=== PATIENT | male | born 1965 | race Caucasian/White ===

== ENCOUNTER 2020-06-13 11:17 | Inpatient (IN) | payer MEDICAID, OTHER ==
[~2020-06-13] VITALS: Ht 177.8 cm; Wt 119.8 kg
[2020-06-13] MEDS ORDERED: FLUT16H NASAL (11:36)
[2020-06-13] MEDS ORDERED: ESCI-8 PO (11:36)
[2020-06-13] MEDS ORDERED: DICL500 PO (11:36)
[2020-06-13] MEDS ORDERED: OMEP20 PO (11:36)
[2020-06-13] MEDS ORDERED: ALBU8HFA IH (11:36)
[2020-06-13] MEDS ORDERED: MONT-35 PO (11:36)
[2020-06-13] MEDS ORDERED: METF-960 PO (11:36)
[2020-06-13] MEDS ORDERED: INSU100I26 SQ (11:36)
[2020-06-13] MEDS ORDERED: GABA-1181 PO (11:36)
[2020-06-13] MEDS ORDERED: HYDR25TA84 PO (11:36)
[2020-06-13] MEDS ORDERED: LISI-661 PO (11:36)
[2020-06-13 13:12] LABS: BASOPHILS % (AUTO) 0.5 % (0.0-2.0); EOSINOPHILS % (AUTO) 3.8 % (1.0-6.0); HEMATOCRIT 39.2 % (41-53); HEMOGLOBIN 13.1 g/dL (13.5-17.5); LYMPHOCYTES # (AUTO) 0.9 K/uL (1.0-4.8); LYMPHOCYTES % (AUTO) 10.3 % (22.0-44.0); MEAN CORPUSCULAR HEMOGLOBIN 29.3 pg (26.0-34.0); MEAN CORPUSCULAR HGB CONC 33.4 G/dL (31.0-37.0); MEAN CORPUSCULAR VOLUME 88 fL (80-100); MONOCYTES # (AUTO) 0.3 K/uL (0.1-1.0); NEUTROPHILS # (AUTO) 6.8 K/uL (1.8-7.7); NEUTROPHILS % (AUTO) 81.4 % (40.0-70.0); PLATELET COUNT (AUTO) 247 K/uL (150-450); RED BLOOD CELL COUNT(AUTO) 4.46 MIL/uL (4.50-5.90); RED CELL DISTRIBUTION WIDTH 15.1 % (11.5-14.5)
[2020-06-13 13:22] LABS: ANION GAP 7 mmol/L (8-16); CALCIUM, TOTAL 9.1 mg/dL (8.8-10.5); CARBON DIOXIDE 26 mmol/L (22-29); CHLORIDE 103 mmol/L (98-107); CREATININE 1.39 mg/dL (0.60-1.30); GLOMERULAR FILTR. RATE CALC 53 mL/min (>60); GLUCOSE,RANDOM 356 mg/dL (70-110); SODIUM SERUM 136 mmol/L (136-145); UREA NITROGEN, BLOOD 20 mg/dL (7-18)
[2020-06-13 13:31] LABS: ALANINE AMINOTRANSFERASE 41 U/L (12-78); ALBUMIN 3.3 g/dL (3.4-5.0); ALKALINE PHOSPHATASE 95 U/L (46-116); ASPARTATE AMINOTRANSFERASE 27 U/L (15-37); BILIRUBIN,TOTAL 0.5 mg/dL (0.1-1.0); TOTAL PROTEIN, SERUM 6.6 g/dL (6.4-8.2)
[2020-06-13 14:48] LABS: GLUCOSE,POINT OF CARE 270 MG/DL (70-110)
[2020-06-13 16:04] LABS: AMPHET/METH SCREEN,URINE POSITIVE (NEGATIVE); BARBITURATE SCREEN, URINE NEGATIVE (NEGATIVE); BENZODIAZEPINES SCREEN,URINE NEGATIVE (NEGATIVE); CANNABINOID SCREEN,URINE NEGATIVE (NEGATIVE); COCAINE SCREEN,URINE NEGATIVE (NEGATIVE); METHADONE SCREEN, URINE NEGATIVE (NEGATIVE)
[2020-06-13 16:05] LABS: OPIATE SCREEN,URINE NEGATIVE (NEGATIVE)
[2020-06-13 16:09] LABS: PHENCYCLIDINE SCREEN,URINE NEGATIVE (NEGATIVE)
[2020-06-13] MEDS ORDERED: OLANZapine 5 MG TABLET PO ONE (17:45)
[2020-06-13] MEDS ORDERED: HALOPERIDOL 5 MG TABLET PO PRN (20:30)
[2020-06-13] MEDS ORDERED: LORazepam 2 MG TABLET PO PRN (20:30)
[2020-06-13] MEDS ORDERED: ZOLPIDEM TARTRATE 10 MG TABLET PO PRN (20:30)
[2020-06-13 21:40] LABS: COVID AG,FIA SOURCE NASOPHARYNGEAL
[2020-06-13] MEDS ORDERED: ACETAMINOPHEN 325 MG TABLET PO PRN (22:15)
[2020-06-13] MEDS ORDERED: IBUPROFEN 400 MG TABLET PO PRN (22:15)
[2020-06-13] MEDS ORDERED: MAGNESIUM HYDROXIDE SUSPENSION 30 ML UDCUP PO PRN (22:15)
[2020-06-13] MEDS ORDERED: INSULIN LISPRO 100 UNITS/ML SQ PRN (22:15)
[2020-06-13] MEDS ORDERED: MAG HYDROX/AL HYDROX/SIMETH ES 30 ML SUSPENSION UDCUP PO PRN (22:15)
[2020-06-13] MEDS ORDERED: CloNIDine HCL 0.1 MG TABLET PO PRN (22:15)
[2020-06-13] MEDS ORDERED: ONDANSETRON HCL 4 MG TABLET PO PRN (22:15)
[2020-06-13] MEDS ORDERED: DOCUSATE SODIUM 100 MG CAPSULE PO PRN (22:15)
[2020-06-13] MEDS ORDERED: PETROLATUM,WHITE 28 GM JELLY TP PRN (22:15)
[2020-06-13] MEDS ORDERED: LOPERAMIDE HCL 2 MG CAPSULE PO PRN (22:15)
[2020-06-13] MEDS ORDERED: NICOTINE 14 MG/24 HOUR PATCH TD PRN (22:15)
[2020-06-13] MEDS ORDERED: ALBUTEROL SULFATE HFA 90 MCG/PUFF 8 GM INHALER IH PRN ×2 (22:15)
[2020-06-13] MEDS ORDERED: GLUCAGON,HUMAN RECOMBINANT 1 MG VIAL IM PRN (22:15)
[2020-06-13] MEDS ORDERED: GuaiFENesin/D-METHORPHAN [SUGAR-FREE] 200-20MG/10 ML SYRUP UDCUP PO PRN (22:15)
[2020-06-13] MEDS ORDERED: DEXTROSE 50%-WATER 25 GM/50 ML SYG IVP PRN (22:30)
[2020-06-14 00:23] LABS: GLUCOSE,POINT OF CARE 280 MG/DL (70-110)
[2020-06-14 00:35] VITALS: BP 132/83
[2020-06-14 06:22] LABS: GLUCOMETER DEV NAME(LOC) 3E.I 2; GLUCOSE,POINT OF CARE 270 MG/DL (70-110)
[2020-06-14] MEDS: MetFORMIN HCL 500 MG TABLET PO SCH ×2 (07:19→17:30)
[2020-06-14] MEDS: INSULIN LISPRO 100 UNITS/ML SQ PRN ×4 (07:21→21:03)
[2020-06-14 07:22] LABS: CHOL/HDL RATIO 2.9 (4.2-7.3)
[2020-06-14 08:00] VITALS: BP 155/81
[2020-06-14] MEDS: LISINOPRIL 10 MG TABLET PO SCH (09:35)
[2020-06-14] MEDS: FLUTICASONE PROPIONATE 50 MCG/SPRAY 16 GM NASAL SPRAY NASAL SCH ×2 (09:35→16:43)
[2020-06-14] MEDS: OMEPRAZOLE 20 MG CAPSULE PO SCH (09:35)
[2020-06-14] MEDS: MONTELUKAST SODIUM 10 MG TABLET PO SCH (09:36)
[2020-06-14] MEDS: HydrALAZINE HCL 25 MG TABLET PO SCH ×3 (09:36→17:00)
[2020-06-14 12:53] LABS: GLUCOMETER DEV NAME(LOC) 3E.I 2; GLUCOSE,POINT OF CARE 270 MG/DL (70-110)
[2020-06-14] MEDS: RisperiDONE 1 MG TABLET PO SCH (13:10)
[2020-06-14] MEDS: ESCITALOPRAM OXALATE 10 MG TABLET PO SCH (13:10)
[2020-06-14 16:46] VITALS: BP 91/63
[2020-06-14 17:17] LABS: GLUCOMETER DEV NAME(LOC) 3E.I 2; GLUCOSE,POINT OF CARE 304 MG/DL (70-110)
[2020-06-14 20:24] LABS: GLUCOMETER DEV NAME(LOC) 3E.I 2; GLUCOSE,POINT OF CARE 289 MG/DL (70-110)
[2020-06-15 05:52] LABS: GLUCOMETER DEV NAME(LOC) 3E.I 2; GLUCOSE,POINT OF CARE 328 MG/DL (70-110)
[2020-06-15 06:13] VITALS: BP 125/74
[2020-06-15] MEDS: INSULIN LISPRO 100 UNITS/ML SQ PRN ×4 (06:54→21:42)
[2020-06-15] MEDS: MetFORMIN HCL 500 MG TABLET PO SCH ×2 (06:57→17:04)
[2020-06-15] MEDS: LISINOPRIL 10 MG TABLET PO SCH (09:09)
[2020-06-15] MEDS: MONTELUKAST SODIUM 10 MG TABLET PO SCH (09:09)
[2020-06-15] MEDS: ESCITALOPRAM OXALATE 10 MG TABLET PO SCH (09:09)
[2020-06-15] MEDS: RisperiDONE 1 MG TABLET PO SCH (09:09)
[2020-06-15] MEDS: OMEPRAZOLE 20 MG CAPSULE PO SCH (09:09)
[2020-06-15] MEDS: FLUTICASONE PROPIONATE 50 MCG/SPRAY 16 GM NASAL SPRAY NASAL SCH ×2 (09:09→17:04)
[2020-06-15] MEDS: HydrALAZINE HCL 25 MG TABLET PO SCH ×3 (09:09→17:04)
[2020-06-15 11:24] VITALS: BP 113/71
[2020-06-15 11:43] LABS: GLUCOMETER DEV NAME(LOC) 3E.I 2; GLUCOSE,POINT OF CARE 259 MG/DL (70-110)
[2020-06-15] MEDS ORDERED: MECLIZINE HCL 12.5 MG TABLET PO PRN (14:45)
[2020-06-15 16:57] VITALS: BP 105/58
[2020-06-15 17:31] LABS: GLUCOMETER DEV NAME(LOC) 3E.I 2; GLUCOSE,POINT OF CARE 245 MG/DL (70-110)
[2020-06-15 21:50] LABS: GLUCOMETER DEV NAME(LOC) 3E.I 2; GLUCOSE,POINT OF CARE 236 MG/DL (70-110)
[2020-06-16 05:34] LABS: GLUCOMETER DEV NAME(LOC) 3E.I 2; GLUCOSE,POINT OF CARE 247 MG/DL (70-110)
[2020-06-16] MEDS: MetFORMIN HCL 500 MG TABLET PO SCH ×2 (06:48→17:27)
[2020-06-16] MEDS: INSULIN LISPRO 100 UNITS/ML SQ PRN ×4 (07:07→20:59)
[2020-06-16] MEDS: ESCITALOPRAM OXALATE 10 MG TABLET PO SCH (08:06)
[2020-06-16] MEDS: LISINOPRIL 10 MG TABLET PO SCH (08:06)
[2020-06-16] MEDS: MONTELUKAST SODIUM 10 MG TABLET PO SCH (08:06)
[2020-06-16] MEDS: RisperiDONE 1 MG TABLET PO SCH (08:06)
[2020-06-16] MEDS: HydrALAZINE HCL 25 MG TABLET PO SCH ×3 (08:06→17:00)
[2020-06-16] MEDS: OMEPRAZOLE 20 MG CAPSULE PO SCH (08:06)
[2020-06-16] MEDS: FLUTICASONE PROPIONATE 50 MCG/SPRAY 16 GM NASAL SPRAY NASAL SCH ×2 (08:06→17:23)
[2020-06-16 11:29] LABS: GLUCOMETER DEV NAME(LOC) 3E.I 2; GLUCOSE,POINT OF CARE 237 MG/DL (70-110)
[2020-06-16 12:31] VITALS: BP 108/74
[2020-06-16 17:08] VITALS: BP 97/64
[2020-06-16 17:37] LABS: GLUCOMETER DEV NAME(LOC) 3E.I 2; GLUCOSE,POINT OF CARE 210 MG/DL (70-110)
[2020-06-16 21:28] LABS: GLUCOMETER DEV NAME(LOC) 3E.I 2; GLUCOSE,POINT OF CARE 232 MG/DL (70-110)
[2020-06-17 05:41] LABS: GLUCOMETER DEV NAME(LOC) 3E.I 2; GLUCOSE,POINT OF CARE 257 MG/DL (70-110)
[2020-06-17] MEDS: MetFORMIN HCL 500 MG TABLET PO SCH ×2 (06:57→17:31)
[2020-06-17] MEDS: INSULIN LISPRO 100 UNITS/ML SQ PRN ×4 (06:58→21:01)
[2020-06-17 10:18] VITALS: BP 112/62
[2020-06-17] MEDS: OMEPRAZOLE 20 MG CAPSULE PO SCH (10:56)
[2020-06-17] MEDS: LISINOPRIL 10 MG TABLET PO SCH (10:56)
[2020-06-17] MEDS: ESCITALOPRAM OXALATE 10 MG TABLET PO SCH (10:56)
[2020-06-17] MEDS: MONTELUKAST SODIUM 10 MG TABLET PO SCH (10:56)
[2020-06-17] MEDS: HydrALAZINE HCL 25 MG TABLET PO SCH ×3 (10:56→17:00)
[2020-06-17] MEDS: RisperiDONE 1 MG TABLET PO SCH (10:56)
[2020-06-17] MEDS: FLUTICASONE PROPIONATE 50 MCG/SPRAY 16 GM NASAL SPRAY NASAL SCH ×2 (10:56→16:58)
[2020-06-17 12:00] LABS: GLUCOMETER DEV NAME(LOC) 3E.I 2; GLUCOSE,POINT OF CARE 286 MG/DL (70-110)
[2020-06-17 16:41] VITALS: BP 101/54
[2020-06-17 17:14] LABS: GLUCOMETER DEV NAME(LOC) 3E.I 2; GLUCOSE,POINT OF CARE 226 MG/DL (70-110)
[2020-06-17 20:54] LABS: GLUCOMETER DEV NAME(LOC) 3E.I 2; GLUCOSE,POINT OF CARE 218 MG/DL (70-110)
[2020-06-18 05:26] LABS: GLUCOMETER DEV NAME(LOC) 3E.I 2; GLUCOSE,POINT OF CARE 216 MG/DL (70-110)
[2020-06-18] MEDS: MetFORMIN HCL 500 MG TABLET PO SCH ×2 (07:01→16:56)
[2020-06-18] MEDS: GlipiZIDE 5 MG TABLET PO SCH (07:03)
[2020-06-18] MEDS: INSULIN LISPRO 100 UNITS/ML SQ PRN ×4 (07:09→21:11)
[2020-06-18 09:27] VITALS: BP 141/86
[2020-06-18] MEDS: FLUTICASONE PROPIONATE 50 MCG/SPRAY 16 GM NASAL SPRAY NASAL SCH ×2 (09:54→16:56)
[2020-06-18] MEDS: MONTELUKAST SODIUM 10 MG TABLET PO SCH (09:55)
[2020-06-18] MEDS: HydrALAZINE HCL 25 MG TABLET PO SCH ×3 (09:55→16:56)
[2020-06-18] MEDS: ESCITALOPRAM OXALATE 10 MG TABLET PO SCH (10:23)
[2020-06-18] MEDS: RisperiDONE 1 MG TABLET PO SCH (10:23)
[2020-06-18] MEDS: LISINOPRIL 10 MG TABLET PO SCH (10:23)
[2020-06-18] MEDS: OMEPRAZOLE 20 MG CAPSULE PO SCH (10:23)
[2020-06-18 12:25] LABS: GLUCOMETER DEV NAME(LOC) 3E.I 2; GLUCOSE,POINT OF CARE 235 MG/DL (70-110)
[2020-06-18 16:00] VITALS: BP 121/74
[2020-06-18 20:43] LABS: GLUCOMETER DEV NAME(LOC) 3E.I 2; GLUCOSE,POINT OF CARE 133 MG/DL (70-110)
[2020-06-19 05:22] LABS: GLUCOMETER DEV NAME(LOC) 3E.I 2; GLUCOSE,POINT OF CARE 164 MG/DL (70-110)
[2020-06-19 05:49] LABS: GLUCOMETER DEV NAME(LOC) 3E.I 2; GLUCOSE,POINT OF CARE 147 MG/DL (70-110)
[2020-06-19] MEDS: MetFORMIN HCL 500 MG TABLET PO SCH ×2 (06:50→17:30)
[2020-06-19] MEDS: GlipiZIDE 5 MG TABLET PO SCH (06:50)
[2020-06-19] MEDS: INSULIN LISPRO 100 UNITS/ML SQ PRN ×3 (06:57→17:08)
[2020-06-19 09:03] VITALS: BP 122/75
[2020-06-19] MEDS: LISINOPRIL 10 MG TABLET PO SCH (09:09)
[2020-06-19] MEDS: RisperiDONE 1 MG TABLET PO SCH (09:09)
[2020-06-19] MEDS: ESCITALOPRAM OXALATE 10 MG TABLET PO SCH (09:09)
[2020-06-19] MEDS: OMEPRAZOLE 20 MG CAPSULE PO SCH (09:09)
[2020-06-19] MEDS: HydrALAZINE HCL 25 MG TABLET PO SCH ×3 (09:10→16:26)
[2020-06-19] MEDS: FLUTICASONE PROPIONATE 50 MCG/SPRAY 16 GM NASAL SPRAY NASAL SCH ×2 (09:10→17:00)
[2020-06-19] MEDS: MONTELUKAST SODIUM 10 MG TABLET PO SCH (09:11)
[2020-06-19 11:37] LABS: GLUCOMETER DEV NAME(LOC) 3E.I 2; GLUCOSE,POINT OF CARE 215 MG/DL (70-110)
[2020-06-19] MEDS ORDERED: RISP1TAB27 PO (11:41)
[2020-06-19] MEDS ORDERED: GLIP5 PO (11:43)
[2020-06-19 16:00] VITALS: BP 122/74
[2020-06-19 16:39] LABS: GLUCOMETER DEV NAME(LOC) 3E.I 2; GLUCOSE,POINT OF CARE 190 MG/DL (70-110)
== END 2020-06-19 18:45 | disposition home or self-care (01) | DRG 750 ==
LOC: EMS 11:19 → 3EI 20:17 → UNDOADMIN 20:17 → 3EI 21:21
PROVIDERS: ADMIT Psychiatry & Neurology Child & Adolescent Psychiatry; ATTEND Psychiatry & Neurology Child & Adolescent Psychiatry
DX: F25.1 Schizoaffective disorder, depressive type (principal); E11.22 Type 2 diabetes mellitus with diabetic chronic kidney disease; E11.40 Type 2 diabetes mellitus with diabetic neuropathy, unspecified; I12.9 Hypertensive chronic kidney disease with stage 1 through stage 4 chronic kidney disease, or unspecified chronic kidney disease; J45.909 Unspecified asthma, uncomplicated; N18.30 Chronic kidney disease, stage 3 unspecified; R45.850 Homicidal ideations; R45.851 Suicidal ideations; D64.9 Anemia, unspecified; Z59.0 Homelessness
CPT/HCPCS: 87426; G0480

== ENCOUNTER 2020-11-17 02:08 | Inpatient (IN) | payer MEDICAID, OTHER ==
[~2020-11-17] VITALS: Ht 177.8 cm; Wt 122.0 kg
[~2020-11-17 02:08] MED LIST: ALBU8HFA IH; ESCI-8 PO; FLUT16H NASAL; GLIP5 PO; HYDR25TA84 PO; LISI-893 PO; METF-960 PO; MONT-35 PO; OMEP20 PO; RISP1TAB48 PO
[2020-11-17] MEDS ORDERED: LORazepam 2 MG TABLET PO ONE (02:45)
[2020-11-17] MEDS ORDERED: ESCITALOPRAM OXALATE 10 MG TABLET PO ONE (02:45)
[2020-11-17] MEDS ORDERED: RisperiDONE 1 MG TABLET PO ONE (02:45)
[2020-11-17 03:31] LABS: COVID AG,FIA SOURCE NASOPHARYNGEAL
[2020-11-17] MEDS ORDERED: LORazepam 2 MG TABLET PO PRN (03:45)
[2020-11-17] MEDS ORDERED: HALOPERIDOL 5 MG TABLET PO PRN (03:45)
[2020-11-17] MEDS ORDERED: ZOLPIDEM TARTRATE 10 MG TABLET PO PRN (03:45)
[2020-11-17] MEDS ORDERED: GABA-1181 PO (04:07)
[2020-11-17] MEDS ORDERED: ATOR20TA65 PO (04:18)
[2020-11-17] MEDS ORDERED: ASCO500 PO (04:18)
[2020-11-17] MEDS ORDERED: MULT400T7 PO (04:18)
[2020-11-17 21:09] LABS: GLUCOMETER DEV NAME(LOC) BV2S.; GLUCOSE,POINT OF CARE 363 MG/DL (70-110)
[2020-11-17 21:12] VITALS: BP 161/91
[2020-11-17] MEDS ORDERED: GLUCAGON,HUMAN RECOMBINANT 1 MG VIAL IM PRN (21:45)
[2020-11-17] MEDS ORDERED: CloNIDine HCL 0.1 MG TABLET PO PRN (21:45)
[2020-11-17] MEDS: INSULIN LISPRO 100 UNITS/ML SQ PRN (22:12)
[2020-11-18] VITALS (10 sets, daily range): BP systolic 91–142; BP diastolic 61–86
[2020-11-18] MEDS: INSULIN LISPRO 100 UNITS/ML SQ PRN ×3 (07:54→16:42)
[2020-11-18 08:36] LABS: ALANINE AMINOTRANSFERASE 24 U/L (12-78); ALBUMIN 3.2 g/dL (3.4-5.0); ALKALINE PHOSPHATASE 83 U/L (46-116); ANION GAP 11 mmol/L (8-16); ASPARTATE AMINOTRANSFERASE 9 U/L (15-37); BILIRUBIN,TOTAL 0.3 mg/dL (0.1-1.0); CALCIUM, TOTAL 9.3 mg/dL (8.8-10.5); CARBON DIOXIDE 24 mmol/L (22-29); CHLORIDE 102 mmol/L (98-107); CHOL/HDL RATIO 2.4 (4.2-7.3); CHOLESTEROL 111 mg/dL (131-200); CREATININE 1.23 mg/dL (0.60-1.30); FREE T4 (FREE THYROXINE) 1.15 ng/dL (0.76-1.46); GLOMERULAR FILTR. RATE CALC > 60 mL/min (>60); GLUCOSE,RANDOM 360 mg/dL (70-110); HDL CHOLESTEROL 46 mg/dL (40-60); LDL CHOL (CALC.) 51 mg/dL (0-130); POTASSIUM 4.5 mmol/L (3.5-5.1); SODIUM SERUM 137 mmol/L (136-145); THYROID STIMULATING HORMONE 1.66 uIU/mL (0.36-3.74); TOTAL PROTEIN, SERUM 6.8 g/dL (6.4-8.2); TRIGLYCERIDES 69 mg/dL (15-150); UREA NITROGEN, BLOOD 25 mg/dL (7-18)
[2020-11-18 11:41] LABS: GLUCOMETER DEV NAME(LOC) BV2S.; GLUCOSE,POINT OF CARE 328 MG/DL (70-110)
[2020-11-18 16:35] LABS: GLUCOMETER DEV NAME(LOC) BV2S.; GLUCOSE,POINT OF CARE 354 MG/DL (70-110)
[2020-11-18] MEDS: RisperiDONE 2 MG TABLET PO SCH (16:46)
[2020-11-18 20:57] LABS: GLUCOMETER DEV NAME(LOC) BV2S.; GLUCOSE,POINT OF CARE 429 MG/DL (70-110)
[2020-11-18] MEDS ORDERED: INSULIN GLARGINE,HUM.REC.ANLOG 100 UNITS/ML SQ SCH (21:00)
[2020-11-18] MEDS ORDERED: INSULIN LISPRO 100 UNITS/ML SQ ONE (21:00)
[2020-11-19 00:48] VITALS: BP 138/82
[2020-11-19 01:26] VITALS: BP 138/82
[2020-11-19 06:18] LABS: GLUCOMETER DEV NAME(LOC) BV2S.; GLUCOSE,POINT OF CARE 270 MG/DL (70-110)
[2020-11-19] MEDS: INSULIN LISPRO 100 UNITS/ML SQ PRN ×2 (06:43→13:36)
[2020-11-19 07:37] LABS: BASOPHILS % (AUTO) 0.5 % (0.0-2.0); EOSINOPHILS % (AUTO) 2.2 % (1.0-6.0); HEMATOCRIT 40.5 % (41-53); HEMOGLOBIN 13.2 g/dL (13.5-17.5); LYMPHOCYTES # (AUTO) 1.5 K/uL (1.0-4.8); LYMPHOCYTES % (AUTO) 16.8 % (22.0-44.0); MEAN CORPUSCULAR HGB CONC 32.7 G/dL (31.0-37.0); MEAN CORPUSCULAR VOLUME 88 fL (80-100); MONOCYTES # (AUTO) 0.7 K/uL (0.1-1.0); NEUTROPHILS # (AUTO) 6.7 K/uL (1.8-7.7); NEUTROPHILS % (AUTO) 72.5 % (40.0-70.0); PLATELET COUNT (AUTO) 278 K/uL (150-450); RED BLOOD CELL COUNT(AUTO) 4.58 MIL/uL (4.50-5.90); RED CELL DISTRIBUTION WIDTH 14.7 % (11.5-14.5)
[2020-11-19 08:22] VITALS: BP 143/86
[2020-11-19] MEDS: CITALOPRAM HYDROBROMIDE 20 MG TABLET PO SCH (08:53)
[2020-11-19] MEDS: RisperiDONE 2 MG TABLET PO SCH ×2 (08:53→16:45)
[2020-11-19] MEDS ORDERED: NICOTINE 14 MG/24 HOUR PATCH TD PRN (11:00)
[2020-11-19] MEDS ORDERED: ALBUTEROL SULFATE HFA 90 MCG/PUFF 8 GM INHALER IH PRN (11:00)
[2020-11-19] MEDS ORDERED: ACETAMINOPHEN 325 MG TABLET PO PRN (11:00)
[2020-11-19] MEDS ORDERED: MAG HYDROX/AL HYDROX/SIMETH ES 30 ML SUSPENSION UDCUP PO PRN (11:00)
[2020-11-19] MEDS ORDERED: PETROLATUM,WHITE 28 GM JELLY TP PRN (11:00)
[2020-11-19] MEDS ORDERED: ONDANSETRON HCL 4 MG TABLET PO PRN (11:00)
[2020-11-19] MEDS ORDERED: GuaiFENesin/D-METHORPHAN [SUGAR-FREE] 200-20MG/10 ML SYRUP UDCUP PO PRN (11:00)
[2020-11-19] MEDS ORDERED: LOPERAMIDE HCL 2 MG CAPSULE PO PRN (11:00)
[2020-11-19] MEDS ORDERED: IBUPROFEN 400 MG TABLET PO PRN (11:00)
[2020-11-19] MEDS ORDERED: MAGNESIUM HYDROXIDE SUSPENSION 30 ML UDCUP PO PRN (11:00)
[2020-11-19] MEDS ORDERED: DOCUSATE SODIUM 100 MG CAPSULE PO PRN (11:00)
[2020-11-19] MEDS ORDERED: CloNIDine HCL 0.1 MG TABLET PO PRN (11:00)
[2020-11-19 11:34] LABS: GLUCOMETER DEV NAME(LOC) BV2S.; GLUCOSE,POINT OF CARE 280 MG/DL (70-110)
[2020-11-19] MEDS: HydrALAZINE HCL 25 MG TABLET PO SCH ×2 (13:42→16:45)
[2020-11-19 16:14] VITALS: BP 125/84
[2020-11-19] MEDS ORDERED: INSULIN LISPRO 100 UNITS/ML SQ ONE ×3 (16:45→23:00)
[2020-11-19] MEDS: MetFORMIN HCL 500 MG TABLET PO SCH (16:45)
[2020-11-19] MEDS: FLUTICASONE PROPIONATE 50 MCG/SPRAY 16 GM NASAL SPRAY NASAL SCH (16:46)
[2020-11-19 16:51] LABS: GLUCOMETER DEV NAME(LOC) BV2S.; GLUCOSE,POINT OF CARE 416 MG/DL (70-110)
[2020-11-19] MEDS: INSULIN GLARGINE,HUM.REC.ANLOG 100 UNITS/ML SQ SCH (17:13)
[2020-11-19 21:26] LABS: GLUCOMETER DEV NAME(LOC) BV2S.; GLUCOSE,POINT OF CARE 403 MG/DL (70-110)
[2020-11-19 22:57] LABS: GLUCOMETER DEV NAME(LOC) BV2S.; GLUCOSE,POINT OF CARE 337 MG/DL (70-110)
[2020-11-20 00:15] VITALS: BP 108/63
[2020-11-20] MEDS ORDERED: GlipiZIDE 5 MG TABLET PO SCH (06:30)
[2020-11-20 06:45] LABS: GLUCOMETER DEV NAME(LOC) BV2S.; GLUCOSE,POINT OF CARE 309 MG/DL (70-110)
[2020-11-20] MEDS: INSULIN LISPRO 100 UNITS/ML SQ PRN ×2 (06:52→10:12)
[2020-11-20] MEDS: MetFORMIN HCL 500 MG TABLET PO SCH (07:08)
[2020-11-20 08:16] VITALS: BP 133/80
[2020-11-20] MEDS ORDERED: OMEPRAZOLE 20 MG CAPSULE PO SCH (09:00)
[2020-11-20] MEDS ORDERED: ASCORBIC ACID 500 MG TABLET PO SCH (09:00)
[2020-11-20] MEDS ORDERED: MONTELUKAST SODIUM 10 MG TABLET PO SCH (09:00)
[2020-11-20] MEDS ORDERED: ATORVASTATIN CALCIUM 20 MG TABLET PO SCH (09:00)
[2020-11-20 09:32] LABS: GLUCOMETER DEV NAME(LOC) BV2S.; GLUCOSE,POINT OF CARE 360 MG/DL (70-110)
[2020-11-20] MEDS: FLUTICASONE PROPIONATE 50 MCG/SPRAY 16 GM NASAL SPRAY NASAL SCH (09:47)
[2020-11-20] MEDS: CITALOPRAM HYDROBROMIDE 20 MG TABLET PO SCH (09:48)
[2020-11-20] MEDS: RisperiDONE 2 MG TABLET PO SCH (09:48)
[2020-11-20] MEDS: HydrALAZINE HCL 25 MG TABLET PO SCH (09:48)
[2020-11-20] MEDS: INSULIN GLARGINE,HUM.REC.ANLOG 100 UNITS/ML SQ SCH (10:12)
[2020-11-20] MEDS ORDERED: ATOR20TA86 PO (11:32)
[2020-11-20] MEDS ORDERED: CITA-144 PO (11:32)
[2020-11-20] MEDS ORDERED: RISP2TAB45 PO (11:32)
[2020-11-20] MEDS ORDERED: INSLAN SQ (11:32)
== END 2020-11-20 12:30 | disposition home or self-care (01) | DRG 750 ==
LOC: EMS 02:08 → UNDOADMIN 03:44 → B2S 03:44
PROVIDERS: ADMIT Psychiatry & Neurology Psychiatry; ATTEND Psychiatry & Neurology Psychiatry
DX: F25.9 Schizoaffective disorder, unspecified (principal); R45.851 Suicidal ideations; F15.10 Other stimulant abuse, uncomplicated; F12.90 Cannabis use, unspecified, uncomplicated; K21.9 Gastro-esophageal reflux disease without esophagitis; F41.8 Other specified anxiety disorders; I10 Essential (primary) hypertension; E11.40 Type 2 diabetes mellitus with diabetic neuropathy, unspecified; E11.65 Type 2 diabetes mellitus with hyperglycemia; J45.909 Unspecified asthma, uncomplicated; E78.5 Hyperlipidemia, unspecified; F41.0 Panic disorder [episodic paroxysmal anxiety]; E66.01 Morbid (severe) obesity due to excess calories; J30.9 Allergic rhinitis, unspecified; Z20.822 Contact with and (suspected) exposure to COVID-19; R63.0 Anorexia; Z79.4 Long term (current) use of insulin; Z68.38 Body mass index [BMI] 38.0-38.9, adult; Z91.14 Patient's other noncompliance with medication regimen
CPT/HCPCS: 83036; 84439; 84443; 87426; 99285; J1815